=== PATIENT | male | born 1975 | race Caucasian/White ===

== ENCOUNTER 2018-07-01 11:07 | Emergency (ER) | payer MEDICAID ==
[~2018-07-01] VITALS: Ht 170.2 cm; Wt 49.9 kg
[2018-07-01 11:10] VITALS: BP_SYST 162
[2018-07-01] MEDS ORDERED: NACL 0.9% 1,000 ML IV ONE (11:45)
[2018-07-01] MEDS ORDERED: cloNIDine HCL 0.1 MG TABLET PO ONE (12:15)
[2018-07-01 12:34] LABS: CALCIUM 8.2 mg/dL (8.4-11.0); CREATININE 1.63 mg/dL (0.55-1.30); POTASSIUM 4.7 mmol/L (3.5-5.1)
[2018-07-01 13:00] VITALS: BP_SYST 163
== END 2018-07-01 13:00 | disposition home or self-care (01) ==
LOC: SED 11:07
DX: E11.649 Type 2 diabetes mellitus with hypoglycemia without coma (principal); F17.210 Nicotine dependence, cigarettes, uncomplicated; I10 Essential (primary) hypertension; Z71.6 Tobacco abuse counseling
CPT/HCPCS: 36415; 80048; 82962; 96360; 99284; J7030

== ENCOUNTER 2019-09-14 11:02 | Emergency (ER) | payer MEDICAID ==
[~2019-09-14] VITALS: Ht 188 cm; Wt 49.9 kg
--- NOTE | 2019-09-14 11:10 | NUR ---
Patient to ER bed 4 to gown for evaluation. Side rails up.
[2019-09-14 11:14] VITALS: BP_SYST 159
--- NOTE | 2019-09-14 11:14 | NUR ---
ER Dr. Hopkins at bedside examining patient.
--- NOTE | 2019-09-14 11:15 | NUR ---
Patient BIB BLS for low blood glucose. Patient A&Ox4, skin pale and cool, denies N/V/D. Patient states his mother called 911 after patient unarousable. PT glucose 40 enroute, given dextrose upon arrival to ER.
--- NOTE | 2019-09-14 11:16 | NUR ---
EKG performed at by Charlotte HINDS. Physician given copy of EKG for review.
[2019-09-14] MEDS ORDERED: NACL 0.9% 1,000 ML IV ONE (11:20)
[2019-09-14] MEDS ORDERED: DEXTROSE 50% JECT 50 ML DISP.SYRIN IVP ONE (11:30)
[2019-09-14] MEDS ORDERED: DEXTROSE 50% JECT 50 ML DISP.SYRIN ONE (11:32)
--- NOTE | 2019-09-14 12:00 | NUR ---
Lunch tray given to patient.
[2019-09-14 12:14] LABS: BASOPHILS % (AUTO) 1.1 % (0.0-2.0); EOSINOPHILS % (AUTO) 0.7 % (0.0-4.0); HEMATOCRIT 32.1 % (36-54); HEMOGLOBIN 10.5 g/dL (14.0-18.0); LYMPHOCYTES # (AUTO) 0.9 K/uL (1.0-5.5); LYMPHOCYTES % (AUTO) 20.5 % (20.5-51.5); MEAN CORPUSCULAR HEMOGLOBIN 33 pg (27-31); MEAN CORPUSCULAR HGB CONC 33 % (32-36); MEAN CORPUSCULAR VOLUME 100 fL (79.0-98.0); MONOCYTES # (AUTO) 0.2 K/uL (0.0-1.0); MONOCYTES % (AUTO) 5.6 % (1.7-9.3); NEUTROPHILS # (AUTO) 3.1 K/uL (1.8-7.7); NEUTROPHILS % (AUTO) 72.1 % (40.0-70.0); PLATELET COUNT (AUTO) 274 K/uL (130-430); RED BLOOD CELL COUNT(AUTO) 3.22 MIL/uL (4.2-6.2); WHITE BLOOD COUNT (AUTO) 4.4 K/uL (4.8-10.8)
[2019-09-14 12:29] LABS: ANION GAP 6 (5-15); CALCIUM 7.6 mg/dL (8.4-11.0); CHLORIDE 102 mmol/L (98-107); CREATININE 2.22 mg/dL (0.55-1.30); GLUCOSE 247 mg/dL (70-99); POTASSIUM 4.9 mmol/L (3.5-5.1); SODIUM SERUM 132 mmol/L (136-145); UREA NITROGEN, BLOOD 58 mg/dL (8-21)
[2019-09-14 12:36] LABS: GFR AFRICAN AMERICAN 41 mL/min (>90)
[2019-09-14 12:39] LABS: ALANINE AMINOTRANSFERASE 318 U/L (12-78); ALBUMIN 3.1 g/dL (3.4-4.8); ASPARTATE AMINOTRANSFERASE 215 U/L (10-37); TOTAL BILIRUBIN 0.3 mg/dL (0.0-1.0)
[2019-09-14 16:45] VITALS: BP_SYST 134
--- NOTE | 2019-09-14 16:45 | NUR ---
Patient given written and verbal discharge instructions and verbalizes understanding. ER MD discussed with patient the results and treatment provided. Patient in stable condition. ID arm band removed. IV catheter removed intact and dressing applied, no active bleeding. Rx of teststrips given. Patient educated on pain management and to follow up with PMD. Pain Scale 0/10 . Opportunity for questions provided and answered. Medication side effect fact sheet provided. Taxi provide for patient.
[2019-09-16] MEDS ORDERED: MANNITOL 25%(12.5gm),50ML VIAL 50 ML ONE (01:31)
== END 2019-09-14 16:45 | disposition home or self-care (01) ==
LOC: SED 11:02
DX: E11.65 Type 2 diabetes mellitus with hyperglycemia (principal); N28.9 Disorder of kidney and ureter, unspecified; I10 Essential (primary) hypertension; R74.0 Nonspecific elevation of levels of transaminase and lactic acid dehydrogenase [LDH]; Z86.2 Personal history of diseases of the blood and blood-forming organs and certain disorders involving the immune mechanism
CPT/HCPCS: 36415; 71045; 80053; 82962; 84484; 85025; 93005; 96361; 96374; 99284; J7030; J2150

== ENCOUNTER 2019-09-15 21:10 | Emergency (ER) | payer MEDICAID ==
[~2019-09-15] VITALS: Ht 177.8 cm; Wt 56.7 kg
[2019-09-15 21:11] VITALS: BP_SYST 132
[2019-09-15] MEDS ORDERED: ROCURONIUM BROMIDE 10 MG/ML (ZEMURON) IV ONE (21:11)
--- NOTE | 2019-09-15 21:11 | NUR ---
Placed in room 2 . Placed on circuits engineer, blood pressure machine and pulse oximeter. To gown for exam. Side rails up.
--- NOTE | 2019-09-15 21:15 | NUR ---
Patient was BIB [facility] from [facility] where mother states patient appeared to be confused. Pt was seen here yesterday for hypoglycemia. Mother is unsure if patient had taken any drugs. Pt is responsive to painful stimuli. Blood sugar was 130. No other injuries/complaints per patient or noted.
--- NOTE | 2019-09-15 21:48 | NUR ---
ER Dr. Monroe at bedside examining patient.
[2019-09-15] MEDS ORDERED: NACL 0.9% 1,000 ML IV ONE (21:52)
[2019-09-15 22:24] LABS: HEMATOCRIT 30.3 % (36-54); HEMOGLOBIN 10.1 g/dL (14.0-18.0); MEAN CORPUSCULAR HEMOGLOBIN 32 pg (27-31); MEAN CORPUSCULAR HGB CONC 33 % (32-36); MEAN CORPUSCULAR VOLUME 98 fL (79.0-98.0); PLATELET COUNT (AUTO) 240 K/uL (130-430); RED BLOOD CELL COUNT(AUTO) 3.11 MIL/uL (4.2-6.2); RED CELL DISTRIBUTION WIDTH 12.5 % (9.0-15.0); WHITE BLOOD COUNT (AUTO) 3.9 K/uL (4.8-10.8)
--- NOTE | 2019-09-15 22:30 | NUR ---
Pt resting with eyes closed, but easily awakened. Pt makes eye contact, non-verbal, and able to move all extremities. VSS.
[2019-09-15 22:36] LABS: ANION GAP 6 (5-15); CALCIUM 7.9 mg/dL (8.4-11.0); CHLORIDE 105 mmol/L (98-107); CREATININE 2.21 mg/dL (0.55-1.30); GLUCOSE 91 mg/dL (70-99); POTASSIUM 5.6 mmol/L (3.5-5.1); SODIUM SERUM 131 mmol/L (136-145); UREA NITROGEN, BLOOD 55 mg/dL (8-21)
[2019-09-15 22:39] LABS: PROTHROMBIN TIME 9.9 SECS (9.5-12.5)
[2019-09-15 22:42] LABS: ALANINE AMINOTRANSFERASE 604 U/L (12-78); ALBUMIN 3.2 g/dL (3.4-4.8); ASPARTATE AMINOTRANSFERASE 585 U/L (10-37); LIPASE 377 U/L (73-393); TOTAL BILIRUBIN 0.3 mg/dL (0.0-1.0)
[2019-09-15 22:44] LABS: GFR AFRICAN AMERICAN 41 mL/min (>90)
[2019-09-15 22:45] LABS: ALCOHOL, BLOOD < 3 mg/dL (<10)
[2019-09-15 23:16] LABS: BAND % (MANUAL) 0 % (0-6); LYMPHOCYTES % (MANUAL) 34 % (20-46)
[2019-09-15 23:17] LABS: ATYPICAL LYMPHOCYTES % 0 % (0-0); BASOPHILS % (MANUAL) 1 % (0-2); EOSINOPHILS % (MANUAL) 3 % (0-7); METAMYELOCYTES % 0 % (0-0); MONOCYTES % (MANUAL) 18 % (0-11); MYELOCYTES % 0 % (0-0)
--- NOTE | 2019-09-15 23:20 | NUR ---
B/P 241/135, P 52, SPO2 98% RA. Pt unresponsive to tactile and verbal stimulation, no blink reflex, pupils equal and fixed at 4 mm with no light accomodation. Drooling noted to left side of mouth. Extremities with no resistance to gravity. Dr. Monroe immediately called to bedside.
--- NOTE | 2019-09-15 23:26 | NUR ---
patient was moved to bed 1.
--- NOTE | 2019-09-15 23:30 | NUR ---
# 18 FR Mack catheter with use of sterile technique. Immediate return of 800 cc clear yellow urine noted. Bedside drainage bag placed below level of bladder. Urine sample collected and sent to lab. Pt tolerated procedure well. Patient unable to toilet self. Pt exhibits no response to painful stimuli during F/C insertion.
--- NOTE | 2019-09-15 23:38 | NUR ---
B/P 251/231, P 63. No changes noted to pt status. Dr. Monroe made aware.
[2019-09-15] MEDS ORDERED: hydrALAZINE HCL 20 MG/ML VIAL IVP ONE (23:45)
[2019-09-15] MEDS ORDERED: hydrALAZINE HCL 20 MG/ML VIAL ONE (23:53)
--- NOTE | 2019-09-16 00:06 | NUR ---
blood sugar was checked; 114. Dr. Monroe made aware.
[2019-09-16 00:28] LABS: BILIRUBIN,URINE NEGATIVE (NEGATIVE); BLOOD, URINE 1+ (NEGATIVE); CLARITY/URINE CLEAR (CLEAR); COLOR,URINE YELLOW (YELLOW); GLUCOSE,URINE 2+ (NEGATIVE); KETONES,URINE NEGATIVE (NEGATIVE); LEUKOCYTE ESTERASE ,URINE NEGATIVE (NEGATIVE); NITRITE, URINE NEGATIVE (NEGATIVE); PH,URINE 5.5 (5.0-8.0); PROTEIN URINE 3+ (NEGATIVE); UROBILINOGEN,URINE 0.2 (0.2-1.0)
--- NOTE | 2019-09-16 00:35 | NUR ---
Pt to be intubated by Dr. Monroe. RT at bedside with mechanical ventilator, suction equipment available, crash cart and BVM at bedside.
[2019-09-16] MEDS ORDERED: hydrALAZINE HCL 20 MG/ML VIAL IVP ONE ×3 (00:45→05:15)
--- NOTE | 2019-09-16 00:45 | NUR ---
B/P 177/106, P 71. No changes noted to pt status. Dr. Monroe made aware.
[2019-09-16 00:48] LABS: BARBITURATE, URINE NEGATIVE (NEG <=200); METHAMPHETAMINES SCREEN,URINE POSITIVE (NEG <=500); URINE AMPHETAMINE POSITIVE (NEG <=500)
[2019-09-16 00:49] LABS: BENZODIAZEPINE, URINE NEGATIVE (NEG <=150); CANNABINOID, URINE NEGATIVE (NEG <=50); COCAINE, URINE NEGATIVE (NEG <=150); OPIATE, URINE NEGATIVE (NEG <=100); PHENCYCLIDINE SCREEN,URINE NEGATIVE (NEG <=25); UR TRICYCLIC ANTIDEPRESSANTS NEGATIVE (NEG <=300); URINE METHADONE NEGATIVE (NEG <=200); URINE OXYCODONE SCREEN NEGATIVE (NEG <=100); URINE PROPOXYPHENE SCREEN NEGATIVE (NEG <=300)
[2019-09-16 00:51] LABS: BACTERIA,URINE FEW /HPF (None Seen); WBC,URINE 0-3 /HPF (0-3)
--- NOTE | 2019-09-16 00:52 | NUR ---
Procedural time out performed. Myself, Dr. Monroe, RTs x 2 at bedside. Pt to be intubated. Rocuronium 6 mg given IVP. Unsuccessful intubation attempt per Dr. Monroe. BVM with 100% FiO2 per RT, SPO2 100%.
--- NOTE | 2019-09-16 00:59 | NUR ---
Second unsuccessful intubation attempt per Dr. Monroe. CANDICE with 100% FiO2 per RT, SPO2 100%.
--- NOTE | 2019-09-16 01:05 | NUR ---
Successful intubation attempt with bougie per Dr. Monroe. 8 cm ETT secured at 23 cm to the lip. Respirations even, BBS clear and heard over all lung hector. Vent settings: A/C, Vt 400, PIP 12, PEEP 0, Rate 12, FiO2 50%.
--- NOTE | 2019-09-16 01:10 | NUR ---
B/P 166/133 P 81. No changes noted to pt status. Dr. Monroe made aware.
--- NOTE | 2019-09-16 01:14 | NUR ---
X-ray at bedside for post intubation tube placement confirmation.
[2019-09-16] MEDS ORDERED: MANNITOL 25% 12.5GM/50 ML VIAL IVP ONE ×2 (01:15→02:00)
[2019-09-16] MEDS ORDERED: levETIRAcetam 1,000 MG in NS 100 ML IV ONE (01:15)
[2019-09-16] MEDS ORDERED: MANNITOL 25%(12.5gm),50ML VIAL 50 ML ONE (01:22)
[2019-09-16] MEDS ORDERED: LABETALOL 100 MG/ 20ML VIAL IVP ONE (01:30)
--- NOTE | 2019-09-16 01:35 | NUR ---
B/P 160/93, P 84. No changes in pt status. Dr. Monroe made aware.
--- NOTE | 2019-09-16 02:15 | NUR ---
Pt continues to be unresponsive to voice, tactile, and painful stimuli. No spontaneous eye opening or body movements. Pupils remain fixed, even, round and dilated at 4 cm. No changes to Vent settings. PIV to RFA and LFA patent and secure, no s/s infiltration. F/C patent and secure with clear yellow urine to bag. B/P 133/83, P 70, SPO2 100%.
[2019-09-16] MEDS ORDERED: ROCURONIUM BROMIDE 10 MG/ML (ZEMURON) IV ONE (03:15)
--- NOTE | 2019-09-16 03:45 | NUR ---
No changes in pt.s condition. No changes to vent settings. B/P 138/97, P 63, SPO2 100%. Dr. Monroe notified.
--- NOTE | 2019-09-16 04:15 | NUR ---
Pt placed on portable stream control officer with continuous pulse oximetry and transported via stretcher to CT. RT accompanies to ventilate pt.
--- NOTE | 2019-09-16 04:32 | NUR ---
Pt returns to ER bed 01. Pt reconnected to case monitor and RT reconnects pt to Vent. No change in vent settings or pts condition.
--- NOTE | 2019-09-16 04:40 | NUR ---
Lupe Elliott ([phone]), pts mother brought to bedside and updated on pt status. She states that while they were in the [facility] hotel in [place], pt went to put up playing cards and she heard a "thump." She then found him laying face down. She states that she turned him over and he looked at her, but "there was nothing there." Lupe states that pt has been experiencing frequent H/A for a while. She states that pt has been receiving Blood transfusions x 4 over the past 2 years r/t anemia. Lupe also states that her 3 years ago from a brain bleed. Lupe allowed private time to visit with her son.
--- NOTE | 2019-09-16 04:44 | NUR ---
Dr. Monroe at bedside to update pts mother on status and POC.
--- NOTE | 2019-09-16 04:57 | NUR ---
[facility] at bedside obtaining report on patient.
[2019-09-16 05:28] VITALS: BP_SYST 160
--- NOTE | 2019-09-16 05:28 | NUR ---
Patient to be transferred to [facility]. Is being transferred due to higher level of care. Receiving facility has accepting physician and available space. ER physician has signed transfer form. Patient or responsible democrat has agreed to transfer and signed form. Patient belongings inventoried and will be sent with patient. Copy of nursing notes, lab reports, EKG, Physicians Orders and X-rays to be sent with patient. Report called to LIZET Machado at receiving facility. Receiving physician is Dr. Ramírez and Dr. Foster. Pt leaves via [facility] in c/o [facility] ambulance service in critical condition.
== END 2019-09-16 05:28 | disposition short-term general hospital (02) ==
LOC: SED 21:10
DX: I62.9 Nontraumatic intracranial hemorrhage, unspecified (principal); E11.649 Type 2 diabetes mellitus with hypoglycemia without coma; I10 Essential (primary) hypertension; Z79.4 Long term (current) use of insulin; Z86.2 Personal history of diseases of the blood and blood-forming organs and certain disorders involving the immune mechanism
CPT/HCPCS: 31500; 36415; 70450 ×2; 71045 ×2; 80053; 80307; 81000; 82962; 83690; 84484; 85007; 85027; 85610; 85730; 93005; 96361; 96365; 96374; 96375; 96376; 99285; G0482; J0360 ×2; J1953; J2150; J3490; J7030